=== PATIENT | female | born 1995 | race Caucasian/White ===

== ENCOUNTER 2023-05-04 10:23 | Outpatient (AMB) | payer BC, SELFPAY ==
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
[2023-05-04 10:34] VITALS: BMI 32.6
== END 2023-05-04 11:09 | disposition home or self-care (01) ==
PROVIDERS: Visit Provider Physical Medicine & Rehabilitation
DX: M79.18 Myalgia, other site (principal); G56.22 Lesion of ulnar nerve, left upper limb
CPT/HCPCS: 99204

== ENCOUNTER → 2023-05-04 10:23 | Outpatient (BNVA) | payer OTHER, BC, SELFPAY | PROVIDERS: Visit Provider Physical Medicine & Rehabilitation ==